=== PATIENT | female | born 1960 | race Two or more races ===

== ENCOUNTER 2022-08-11 17:52 | Inpatient (IN) | payer OTHER ==
[~2022-08-11] VITALS: Ht 157.5 cm; Wt 58.1 kg
[2022-08-11] MEDS ORDERED: METFORMIN HCL1000 M3 PO (18:22)
[2022-08-11] MEDS ORDERED: SYNTHROID75 MCG PO (18:22)
[2022-08-11] MEDS ORDERED: ATORVASTATIN CA20 MG PO (18:22)
[2022-08-11] MEDS ORDERED: ROSUVASTATIN CA20 MG PO (18:22)
== END 2022-08-20 15:04 | disposition home or self-care (01) | DRG 194 ==
LOC: ER 17:52 → MEDI 23:30
PROVIDERS: ADMIT Internal Medicine; ATTEND Internal Medicine
PROC: 3E0F7SF Introduction of Other Gas into Respiratory Tract, Via Natural or Artificial Opening (ICD-10-PCS; 2022-08-11)
PROC: BW24ZZZ Computerized Tomography (CT Scan) of Chest and Abdomen (ICD-10-PCS; 2022-08-11)
PROC: 3E0F7GC Introduction of Other Therapeutic Substance into Respiratory Tract, Via Natural or Artificial Opening (ICD-10-PCS; principal; 2022-08-12)
PROC: B246ZZZ Ultrasonography of Right and Left Heart (ICD-10-PCS; 2022-08-16)
DX: J18.8 Other pneumonia, unspecified organism (principal); J44.1 Chronic obstructive pulmonary disease with (acute) exacerbation; J81.1 Chronic pulmonary edema; J40 Bronchitis, not specified as acute or chronic; F17.210 Nicotine dependence, cigarettes, uncomplicated; R09.02 Hypoxemia; E11.9 Type 2 diabetes mellitus without complications; I10 Essential (primary) hypertension; Z79.84 Long term (current) use of oral hypoglycemic drugs; Z20.822 Contact with and (suspected) exposure to COVID-19